=== PATIENT | male | born 1945 | race Caucasian/White ===

== ENCOUNTER 2016-11-12 20:49 | Inpatient (IN) | payer MEDICARE, OTHER ==
[~2016-11-12] VITALS: Ht 177.8 cm; Wt 101.5 kg
[2016-11-12 22:01] LABS: Basophils # (auto) 0.2 uL; Basophils % (auto) 2.1 % (0.0-2.0); Eosinophils # (auto) 0.2 uL; Eosinophils % (auto) 2.1 % (0.0-7.0); Hematocrit 40.6 % (41.0-53.0); Hemoglobin 13.4 g/dL (13.5-17.5); Lymphocytes # (auto) 2.1 uL; Lymphocytes % (auto) 23.6 % (10.0-50.0); Mean Corpuscular Hemoglobin 30.4 pg (28.0-32.0); Mean Corpuscular Volume 92.1 fL (80.0-100.0); Mean Platelet Volume 8.5 fL (7.4-10.4); Monocytes # (auto) 0.7 uL; Neutrophils # (auto) 5.6 uL; Neutrophils % (auto) 64.2 % (37.0-80.0); Platelet Count (auto) 199 10^3/uL (140-450); Red Cell Distribution Width 13.2 % (11.6-16.0); White Blood Cell 8.8 10^3/uL (4.4-10.8)
[2016-11-12 22:15] LABS: INR 1.01 (0.9-1.15); Partial Thromboplastin Time 34.8 sec (22.64-33.71); Prothrombin Time 10.4 sec (9.37-12.3)
[2016-11-12 22:18] LABS: Albumin 3.6 g/dL (3.4-5.0); BUN/Creatinine Ratio 20.9; Magnesium 2.1 mg/dL (1.6-2.6)
[2016-11-12 22:20] LABS: Bilirubin, Total 0.5 mg/dL (0.2-1.0); Total Protein 7.7 g/dL (6.4-8.2)
[2016-11-12 22:20] LABS: Urine Bilirubin Negative (Negative); Urine Blood Negative /uL (Negative); Urine Color Yellow (Yellow); Urine Glucose Normal (Normal); Urine Hyaline Cast FEW /lpf (0 - 2); Urine Ketone Negative (Negative); Urine Nitrite Negative (Negative); Urine RBC <1 /hpf (0 - 3); Urine Squamous Epithelial Cell FEW /hpf (<5); Urine Urobilinogen Normal (Negative)
[2016-11-12 22:26] LABS: B-Type Natriuretic Peptide 44.95 pg/mL (0-100)
[2016-11-12 23:03] LABS: Temperature: 22.3 C (20.0-25.0)
[2016-11-13] MEDS ORDERED: MORPHINE SULF INJ 2 MG/ML SYRINGE 1ML IV PRN (06:45)
[2016-11-13] MEDS ORDERED: DEXTROSE (50%) 50ML SYRG IV PRN (06:45)
[2016-11-13] MEDS ORDERED: NITROGLYCERIN 0.4 MG SL TAB SL PRN (06:45)
[2016-11-13] MEDS ORDERED: ONDANSETRON HCL 4 MG/2 ML VIAL IV PRN (06:45)
[2016-11-13] MEDS ORDERED: ACETAMINOPHEN 325 MG TAB PO PRN (06:45)
[2016-11-13] MEDS ORDERED: HYDROcodone-ACET 5/325MG TAB PO PRN (06:45)
[2016-11-13] MEDS ORDERED: IOHEXOL 350 MG/ML 100ML IJ ONE (07:07)
[2016-11-13] MEDS: glipiZIDE 5 MG TAB PO SCH (07:55)
[2016-11-13 08:53] VITALS: BP 152/82
[2016-11-13] MEDS: FAMOTIDINE 20 MG TAB PO SCH ×2 (09:56→21:27)
[2016-11-13] MEDS: LISINOPRIL 10 MG TAB PO SCH (09:56)
[2016-11-13] MEDS: SERTRALINE HCL 50 MG TAB PO SCH (09:57)
[2016-11-13] MEDS: ASPirin 81 mg TAB PO SCH (09:57)
[2016-11-13] MEDS: ENOXAPARIN SOD 40 MG/0.4 ML SYRINGE SC SCH (09:59)
[2016-11-13] MEDS: ACCU-CHEK COMFORT CURVE STRIP VI SCH ×3 (11:38→23:54)
[2016-11-13] MEDS: InsuLIN REG 1unit/0.01ml Soln (100units/ml) SC SCH ×2 (12:06→18:14)
[2016-11-13] MEDS ORDERED: TRAM50TA2 PO (16:34)
[2016-11-13] MEDS ORDERED: SIMV-8 PO (16:34)
[2016-11-13] MEDS ORDERED: LISI10TA6 PO (16:34)
[2016-11-13] MEDS ORDERED: DONE10TA37 PO (16:34)
[2016-11-13] MEDS ORDERED: GLIP-116 PO (16:34)
[2016-11-13] MEDS ORDERED: CLON1TAB3 PO (16:34)
[2016-11-13] MEDS ORDERED: ATEN-60 PO (16:34)
[2016-11-13] MEDS ORDERED: SERT-275 PO (16:34)
[2016-11-13] MEDS ORDERED: METF-316 PO (16:34)
[2016-11-13] MEDS ORDERED: ASPI81TA27 PO (16:35)
[2016-11-13] MEDS ORDERED: OXYB15TA12 PO (16:35)
[2016-11-13 17:00] VITALS: BP 143/79
[2016-11-13 22:00] VITALS: BP 155/79
[2016-11-14] MEDS: InsuLIN REG 1unit/0.01ml Soln (100units/ml) SC SCH ×3 (00:01→12:00)
[2016-11-14 05:06] VITALS: BP 149/82
[2016-11-14 05:19] LABS: Basophils # (auto) 0 uL; Basophils % (auto) 0.3 % (0.0-2.0); Eosinophils # (auto) 0.1 uL; Eosinophils % (auto) 1.7 % (0.0-7.0); Hematocrit 40.5 % (41.0-53.0); Hemoglobin 13.1 g/dL (13.5-17.5); Lymphocytes # (auto) 1.5 uL; Lymphocytes % (auto) 18.4 % (10.0-50.0); Mean Corpuscular Hemoglobin 29.8 pg (28.0-32.0); Mean Corpuscular Hgb Conc. 32.4 g/dL (32.0-36.0); Mean Corpuscular Volume 91.9 fL (80.0-100.0); Mean Platelet Volume 8.5 fL (7.4-10.4); Monocytes # (auto) 0.6 uL; Monocytes % (auto) 7.2 % (0.0-12.0); Neutrophils # (auto) 5.9 uL; Neutrophils % (auto) 72.4 % (37.0-80.0); Platelet Count (auto) 185 10^3/uL (140-450); Red Cell Distribution Width 13.6 % (11.6-16.0); White Blood Cell 8.2 10^3/uL (4.4-10.8)
[2016-11-14 05:47] LABS: Albumin 3.6 g/dL (3.4-5.0); Bilirubin, Total 0.5 mg/dL (0.2-1.0); Calcium 9.1 mg/dL (8.5-10.1); Potassium 3.9 mmol/L (3.5-5.1); Total Protein 7.2 g/dL (6.4-8.2)
[2016-11-14] MEDS: ACCU-CHEK COMFORT CURVE STRIP VI SCH ×2 (06:28→12:03)
[2016-11-14] MEDS: glipiZIDE 5 MG TAB PO SCH (06:31)
[2016-11-14 09:05] VITALS: BP 158/83
[2016-11-14] MEDS: ASPirin 81 mg TAB PO SCH (09:35)
[2016-11-14] MEDS: LISINOPRIL 10 MG TAB PO SCH (09:35)
[2016-11-14] MEDS: SERTRALINE HCL 50 MG TAB PO SCH (09:36)
[2016-11-14] MEDS: FAMOTIDINE 20 MG TAB PO SCH (09:36)
[2016-11-14] MEDS: ENOXAPARIN SOD 40 MG/0.4 ML SYRINGE SC SCH (09:36)
[2016-11-14 13:44] VITALS: BP 158/83
== END 2016-11-14 13:35 | disposition home or self-care (01) | DRG 313 ==
LOC: ER 20:54 → TELE 20:55 → TELE-E-ADS 11-13 08:55 → TELE-CENTR 11-13 15:10
PROVIDERS: ADMIT Internal Medicine; ATTEND Internal Medicine
DX: R07.89 Other chest pain (principal); E78.5 Hyperlipidemia, unspecified; E11.65 Type 2 diabetes mellitus with hyperglycemia; E11.22 Type 2 diabetes mellitus with diabetic chronic kidney disease; I12.9 Hypertensive chronic kidney disease with stage 1 through stage 4 chronic kidney disease, or unspecified chronic kidney disease; I25.10 Atherosclerotic heart disease of native coronary artery without angina pectoris; N18.2 Chronic kidney disease, stage 2 (mild); Z95.5 Presence of coronary angioplasty implant and graft; Z95.1 Presence of aortocoronary bypass graft; Z88.0 Allergy status to penicillin
CPT/HCPCS: 36415; 71020; 71275; 80053; 81001; 82962; 83735; 83880; 84484; 85025; 85379; 85610; 85730; 93005; 93306; G0434; J1815